=== PATIENT | male | born 1950 | race Caucasian/White ===

== ENCOUNTER 2021-09-08 07:42 | Day surgery (SDC) | payer MEDICARE, BC ==
[2021-09-03 16:25] LABS: BASOPHILS % (AUTO) 0.6 % (0-1); EOSINOPHILS % (AUTO) 0.5 % (0-6); LYMPHOCYTES # (AUTO) 1.6 X10'3 (1.1-4.8); LYMPHOCYTES % (AUTO) 22.9 % (21-51); MEAN CORPUSCULAR HGB CONC 34.6 g/dL (33.0-36.5); MEAN CORPUSCULAR VOLUME 83.7 FL (78-98); MEAN PLATELET VOLUME 9.5 FL (7.4-10.4); MONOCYTES # (AUTO) 0.8 X10'3 (0-0.9); MONOCYTES % (AUTO) 11.3 % (2-12); NEUTROPHILS # (AUTO) 4.4 X10'3 (1.8-7.7); NEUTROPHILS % (AUTO) 64.7 % (42-75); PRE OP HEMATOCRIT 46.2 % (42.0-52.0); PRE OP PLATELET COUNT 153 X10'3 (140-440); RED BLOOD COUNT 5.52 X10'6 (4.70-6.10); RED CELL DISTRIBUTION WIDTH 13.7 % (11.5-14.5)
[2021-09-03 16:39] LABS: ALBUMIN 3.9 G/DL (3.4-5.0); ALBUMIN/GLOBULIN RATIO 1.2 (1.1-1.5); ALKALINE PHOSPHATASE 73 IU/L (46-116); BLOOD UREA NITROGEN 11 MG/DL (7-18); BUN/CREATININE RATIO 10.4 (5.4-32.0); CALCIUM 8.4 MG/DL (8.5-10.1); CHLORIDE 105 MMOL/L (99-107); CREATININE 1.06 MG/DL (0.60-1.10); PRE OP ALT 37 U/L (30-65); PRE OP ANION GAP 5 (8-16); PRE OP AST 25 U/L (10-37); PRE OP BILIRUB, TOTAL 0.6 MG/DL (0.0-1.0); PRE OP GLUCOSE 135 MG/DL (70-104); PRE OP SODIUM 139 MMOL/L (135-145); TOTAL CARBON DIOXIDE 28.7 MMOL/L (24-32); TOTAL PROTEIN 7.1 G/DL (6.4-8.2); eGFR 69 ML/MIN
[~2021-09-08] VITALS: Ht 167.6 cm; Wt 85.7 kg
[2021-09-08] VITALS (14 sets, daily range): BP systolic 106–122; BP diastolic 60–78
[~2021-09-08 07:42] MED LIST: ALFU10TA10 PO; ATOR20TA66 PO; DIGO125T PO; DOCUMENT DATE & TIME OF BETA-BLOCKER PO ONE; EPLE25TA4 PO; HUM7525 SQ; INSU100I25 SQ; METO-384 PO; SACU1TAB4 PO; ceFAZolin inj. 2,000 MG in dextrose 5%-water 100 ML IV ONE; famotidine 20mg tablet PO ONE; ringers solution, lacted 1,000 ML IV SCH
[2021-09-08] MEDS ORDERED: LIDOcaine 1% W/epiNEPHrine 1:100,000 20ml vial ONE (10:14)
[2021-09-08] MEDS ORDERED: BUPIVAcaine 0.5% inj/PF 30 ML ONE (10:14)
[2021-09-08] MEDS ORDERED: sevoflurane 250ml liquid IH ONE (10:32)
[2021-09-08] MEDS ORDERED: fentaNYL/PF 50MCG/1 ML 2ML syringe ONE (10:39)
[2021-09-08] MEDS ORDERED: midazolam 1 mg/ML 2ml injection ONE (10:39)
[2021-09-08] MEDS ORDERED: BUPIVAcaine 0.5% inj/PF 30 ml vial IJ ONE (11:15)
[2021-09-08] MEDS ORDERED: proCHLORperazine 10 MG/2 ml inj IV PRN (11:20)
[2021-09-08] MEDS ORDERED: morphine 2 MG/ML inj. syringe IV PRN (11:20)
[2021-09-08] MEDS ORDERED: morphine 4 MG/ML inj SYRINge IV PRN (11:20)
[2021-09-08] MEDS ORDERED: ondansetron/PF 4mg/2ml inj IV PRN (11:20)
[2021-09-08] MEDS ORDERED: ringers solution, lacted 1,000 ML IV SCH (11:20)
[2021-09-08] MEDS ORDERED: meperidine/PF 25mg/ml syringe IV PRN ×3 (11:20)
[2021-09-08] MEDS ORDERED: rocuronium 10mg/ml inj IV ONE (11:35)
[2021-09-08] MEDS ORDERED: propofol inj 20 ML IV ONE (11:35)
[2021-09-08] MEDS ORDERED: neostigmine methylsulfate 1 MG/ML 10ml vial ONE (11:54)
[2021-09-08] MEDS ORDERED: glycopyrrolate 0.2mg/ml inj ONE (11:54)
[2021-09-08] MEDS ORDERED: dexamethasone sod phosphate 4mg/ml inj. ONE (11:54)
[2021-09-08] MEDS ORDERED: ondansetron/PF 4mg/2ml inj ONE (11:54)
--- NOTE | 2021-09-08 11:56 | NUR ---
Received from OR via van , accompanied by Anesthesiologist and report given by Dr. Pitts Anesthesiolgist. PATIENT WAKING UP, NO S/S OF PAIN, VSS, 20G TO LUE, ABDOMEN LAP SITE X3 BANDAIDS CDI WITHOUT S/S OF COMPLICATIONS. Addendum: 09/08/21 at 1210 by West Mcgee RN Amended: Links added.
[2021-09-08] MEDS ORDERED: HYDROcodone/acetaminophen 5mg/325mg tablet PO PRN (12:10)
--- NOTE | 2021-09-08 14:56 | NUR ---
PATIENT WAS UNABLE TO VOID. PERFORMED BLADDER SCANNER AND 250 CC OF URINE NOTED. PATIENT WANTING TO WAIT AND SENT PATIENT TO [facility]. DINH. DRESSINGS INTACT. TOLERATED FLUID AND NO PAIN AT THIS TIME. REPORT GIVEN TO MECHELLE. Addendum: 09/08/21 at 1821 by West Mcgee RN Amended: Links added.
--- NOTE | 2021-09-08 14:59 | NUR ---
RECEIVED REPORT FROM THONG CAICEDO, PT UNABLE TO URINATE. IV FLUIDS RUNNING, WATER GIVEN TO PATIENT. AT BEDSIDE, PT IS STEADY ON HIS FEET, AMBULATING BACK AND FORTH FROM THE BATHROOM, PT COMPLAINS OF MILD ABDOMINAL PAIN
[2021-09-08] MEDS ORDERED: LIDOcaine 2% 10ml TOPICAL JELLY (Urojet) MM ONE (15:25)
--- NOTE | 2021-09-08 16:00 | NUR ---
BLADDER RESCANNED APPROX 400CC, PT STATES THAT HE DOES NOT HAVE TO URGE TO URINATE AND HE FEELS BLOATED AND DISTENDED. ABDOMEN SOFT TO TOUCH. CAN FEEL BLADDER APPROX 3 FINGERS BELOW THE UMBILICUS. BANDAIDS ON ABDOMEN IN PLACE AND DRY. DISCHARGE INSTRUCTIONS GIVEN TO PATIENT AND , VERBALIZED UNDERSTANDING. PT STATES HE HAS A REGULAR FOLLOW UP APPOINTMENT WITH HIS UROLOGIST ON TUESDAY AND HE WILL ASK UROLOGIST TO REMOVE CATHETER. INSTRUCTED PT TO CALL DR PAUL OFFICE TO VERIFY
--- NOTE | 2021-09-08 16:05 | NUR ---
BECKHAM CATHETER INSERTED, MILD RESISTANCE NOTED AT PROSTATE AREA. LARGE BAG PLACED, PT INSTRUCTED ON HOW TO CLEAN THE GENITALIA AREA. AT BEDSIDE ALSO AND RECEIVE EDUCATION.
--- NOTE | 2021-09-08 16:26 | NUR ---
PATIENT DISCHARGED VIA WHEELCHAIR TO PRIVATE VEHICLE WITH DRIVING. BECKHAM CATHETER SECURED AND DRAINING WELL. PT GIVEN A PAIN PILL PRIOR TO DISCHARGE, WITH INSTRUCTIONS TO TAKE THE NEXT ONE IN 6 HOURS IF NEEDED. PT ALSO INSTRUCTED TO EAT SOME FOOD.
== END 2021-09-08 16:26 | disposition home or self-care (01) ==
LOC: PAS 07:42
PROVIDERS: ATTEND Surgery
DX: K40.90 Unilateral inguinal hernia, without obstruction or gangrene, not specified as recurrent (principal); I11.0 Hypertensive heart disease with heart failure; I50.9 Heart failure, unspecified; E11.9 Type 2 diabetes mellitus without complications; I42.9 Cardiomyopathy, unspecified; N40.0 Benign prostatic hyperplasia without lower urinary tract symptoms; Z79.4 Long term (current) use of insulin; Z79.899 Other long term (current) drug therapy; Z88.5 Allergy status to narcotic agent; Z88.8 Allergy status to other drugs, medicaments and biological substances; Z88.1 Allergy status to other antibiotic agents; Z72.89 Other problems related to lifestyle; Z82.3 Family history of stroke; Z82.49 Family history of ischemic heart disease and other diseases of the circulatory system; Z83.3 Family history of diabetes mellitus
CPT/HCPCS: 36415; 49650; 80053; 82948; 85025; 93005; 93306; C1781; J0690; J1100; J2250; J2405; J2704; J2710; J3010; J3490; J7030; J7060; J7120; S0020; Z7506; Z7508; Z7512; A4215; A4314; A4618